=== PATIENT | male | born 1970 | race Caucasian/White ===

== ENCOUNTER 2019-11-14 10:44 | Outpatient (CLI) | payer BC, SELFPAY ==
[2019-11-14 11:44] LABS: Basophils % 0.8 %; Eosinophils % 0.8 %; Hematocrit 48.6 % (42.0-52.0); Hemoglobin 15.8 g/dL (11.7-16.6); Lymphocytes # 1.1 10^3/uL (0.8-4.8); Lymphocytes % 23.9 %; Mean Corpuscular HGB Conc 32.5 g/dL (30.0-36.0); Mean Corpuscular Hemoglobin 28.3 pg (28.0-34.0); Mean Corpuscular Volume 86.9 fL (80-94); Mean Platelet Volume 9.7 fL (7.4-10.4); Monocytes # 0.8 10^3/uL (0.2-0.9); Monocytes % 15.9 %; Neutrophils # 2.7 10^3/uL (1.8-7.7); Neutrophils % 58.2 %; Nucleated Red Blood Cells % 0 %; Platelet Count 214 10^3/cmm (130-400); Red Blood Count 5.59 10^6/uL (4.1-5.3); Red Cell Distribution Width 12.9 % (12.1-15.1); White Blood Count 4.7 10^3/uL (4.0-10.0)
[2019-11-14 11:54] LABS: Glucose Urine UA Norm (Normal); Protein Urine Neg (Negative); Urine Appearance Clear (CLEAR); Urine Color Yellow (Yellow); pH Urine 5 (5-7)
[2019-11-14 11:55] LABS: Add Urine Microscopic? YES; Bilirubin Urine Neg (NEGATIVE); Blood Urine Trace (Negative); Ketones Urine 1+ (Negative); Leukocyte Esterase Urine Negative (Negative); Nitrate Urine Negative (Negative); Urobilinogen Urine Norm (Negative)
[2019-11-14 12:01] LABS: Alanine Aminotransferase 36 U/L (0-41); Albumin Level 4.3 g/dL (3.5-5.2); Alkaline Phosphatase 111 IU/L (40-130); Anion Gap 13.8 (5-19); Aspartate Amino Transferase 34 U/L (0-40); Blood Urea Nitrogen 14 mg/dL (6-20); Calcium 9.2 mg/dL (8.5-10.5); Carbon Dioxide 28 mmol/L (22-29); Chloride 98 mmol/L (98-107); Globulin 3.8 g/dL (1.3-4.6); Glomerular Filtration Rate 64.9 mL/min (90-130); Glucose 106 mg/dL (65-115); Potassium 3.8 mmol/L (3.5-5.1); Sodium 136 mmol/L (136-145); Total Bilirubin 0.5 mg/dL (0.15-1.2); Total Protein 8.1 g/dL (6.6-8.7)
[2019-11-14 12:02] LABS: Rapid Strep A Test Negative (Negative)
[2019-11-14 12:05] LABS: Add Urine Culture? No; Bacteria Urine TRACE; Mucus Urine TRACE; RBC Urine 0-4 /hpf (0-2); Squamous Epithelial Cell Urine 0-4 (0-5)
== END 2019-11-14 10:45 | disposition home or self-care (01) ==
LOC: LAB 11:06
PROVIDERS: PCP Internal Medicine; Visit Provider Internal Medicine
DX: R50.9 Fever, unspecified (principal)
CPT/HCPCS: 36415; 80053; 81001; 85025; 87081; 87880

== ENCOUNTER 2020-07-01 12:00 | Outpatient (CLI) | payer BC, SELFPAY | END 2020-07-01 12:01 | disposition home or self-care (01) | LOC: SLEEP 07-02 11:21 | PROVIDERS: PCP Internal Medicine; Visit Provider Internal Medicine | DX: G47.10 Hypersomnia, unspecified (principal) | CPT/HCPCS: G0399 ==

== ENCOUNTER 2021-06-01 10:09 | Outpatient (CLI) | payer BC, SELFPAY ==
[2021-06-01 10:15] VITALS: BP 133/82; PULSE 74; RESP 18; TEMP 37.1; O2SAT 97; BMI 30.1
[2021-06-01 11:00] VITALS: BP 119/75; PULSE 74; RESP 18; O2SAT 96
[2021-06-01 12:00] VITALS: BP 111/75; PULSE 68; RESP 16; TEMP 36.9; O2SAT 96
== END 2021-06-01 10:10 | disposition home or self-care (01) ==
LOC: OPS 10:13
PROVIDERS: PCP Internal Medicine; Visit Provider Internal Medicine
DX: U07.1 COVID-19 (principal)
CPT/HCPCS: 96365